=== PATIENT | female | born 1990 | race American Indian/Alaskan Native ===

== ENCOUNTER 2020-10-01 16:55 | Emergency (ER) | payer MEDICARE ==
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
[2020-10-01 18:56] LABS: Basophils # (Auto) 0.1 K/mm3 (0.0-0.1); Basophils % (Auto) 0.9 % (0.0-1.8); Eosinophils # (Auto) 0.4 K/mm3 (0.0-0.4); Eosinophils % (Auto) 3.3 % (0.0-4.3); Hematocrit 34.5 % (30.3-42.9); Lymphocytes # (Auto) 2.5 K/mm3 (1.2-5.4); Lymphocytes % (Auto) 22.8 % (13.4-35.0); Mean Corpuscular HGB Conc 32 % (30-34); Mean Corpuscular Volume 79 fl (79-97); Monocytes # (Auto) 0.7 K/mm3 (0.0-0.8); Platelet Count 354 K/mm3 (140-440); Red Blood Count 4.38 M/mm3 (3.65-5.03); Red Cell Distribution Width 18.9 % (13.2-15.2)
[2020-10-01 19:37] LABS: Bilirubin,Urine NEG (Negative); Blood,Urine LG (Negative); Color,Urine Yellow (Yellow); Mucus,Urine 1+ /HPF; Protein,Urine <15 mg/dL mg/dL (Negative)
[2020-10-01] MEDS ORDERED: FAMOTIDINE 20 MG TAB PO ONE (19:49)
[2020-10-01] MEDS ORDERED: ACETAMINOPHEN 500 MG TAB PO ONE (19:49)
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
[2020-10-01 20:52] LABS: Alanine Aminotransferase 10 units/L (7-56); Albumin 3.5 g/dL (3.9-5); Blood Urea Nitrogen 6 mg/dL (7-17); Hemolysis Index 3
[2020-10-01 20:54] LABS: BUN/Creatinine Ratio 12
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
[2020-10-01 23:31] VITALS: BP 164/99
== END 2020-10-01 23:32 | disposition home or self-care (01) ==
LOC: ED 16:55
DX: N94.6 Dysmenorrhea, unspecified (principal); R10.30 Lower abdominal pain, unspecified; R10.2 Pelvic and perineal pain; I10 Essential (primary) hypertension; F17.200 Nicotine dependence, unspecified, uncomplicated; Z98.890 Other specified postprocedural states; Z79.899 Other long term (current) drug therapy; Z88.8 Allergy status to other drugs, medicaments and biological substances; Z91.040 Latex allergy status; V49.49XA Driver injured in collision with other motor vehicles in traffic accident, initial encounter; Y93.89 Activity, other specified; Y92.410 Unspecified street and highway as the place of occurrence of the external cause; Y99.8 Other external cause status
CPT/HCPCS: 36415; 74177; 80053; 81001; 85025; 99284; Q9967

== ENCOUNTER 2021-04-26 09:24 | Emergency (ER) | payer MEDICAID, MEDICARE ==
[2021-04-26 09:51] LABS: Bilirubin,Urine NEG (Negative); Blood,Urine NEG (Negative); Color,Urine Straw (Yellow); Protein,Urine <15 mg/dL mg/dL (Negative); RBC,Urine < 1.0 /HPF (0.0-6.0); Urobilinogen,Urine < 2.0 mg/dL (<2.0)
--- NOTE | 2021-04-26 11:29 | Event Note ---
ED Screening Note Date of service: 04/26/21 Time: 11:26 ED Screening Note: 30-year-old female patient with history of kidney stones presents emergency department with complaints of suprapubic pain, nausea, and vomiting starting 5 days ago. Patient also began to notice vaginal discharge 3 days ago. She was evaluated at another local emergency department, where she was diagnosed with a urinary tract infection, but she refused IM antibiotics. She was reportedly not a candidate for PO antibiotics due to the "high level of infection." She was prescribed Zofran and Phenergan for nausea, which she states has been ineffective in relieving her symptoms. General: Awake, appropriately interactive, no acute distress. Neck: Supple. Full range of motion intact. Cardiovascular: Normal peripheral perfusion. Pulmonary: No respiratory distress. Patient is speaking normally without use of accessory muscles. Abdomen: Suprapubic tenderness. Back: Right CVA tenderness. Skin: No apparent rashes or lesions. Neurological: No facial asymmetry. Speech is clear. Follows commands. Patient is alert and oriented. Musculoskeletal: Moves all four extremities spontaneously with normal range of motion. Psych: Cooperative. Appropriate mood and affect. I have greeted and performed a focused rapid initial assessment of this patient. A comprehensive ED assessment and evaluation of the patient, analysis of all test results, and completion of the medical decision-making process will be conducted by additional ED providers. This initial assessment/diagnostic orders/clinical plan/treatment(s) is/are subject to change based on patients health status, clinical progression and re-assessment. Further treatment and workup at subsequent clinical provider's discretion. Patient/guardian urged not to elope from the ED as their condition may be serious if not clinically assessed and managed.
--- NOTE | 2021-04-26 12:37 | Emergency Department Report ---
ED Abdominal Pain HPI - General Chief Complaint: Abdominal Pain Stated Complaint: VOMITTING/LOW ABD PAIN/HEADACHE PUI?: No Time Seen by Provider: 04/26/21 11:56 Source: patient Mode of arrival: Ambulatory Limitations: No Limitations - History of Present Illness Initial Comments: Patient is a 30-year-old female that comes to the emergency room today complaining of lower abdominal pain and vomiting. She states that she went to [facility] couple weeks ago and they told her that she had a UTI but she refused treatment. She has not followed up with her primary care. Patient is ambulatory nontoxic initially in [facility] on exam. Patient denies taking any home medications. She has no CVA tenderness, no dysuria, no back pain, no constipation or diarrhea. She denies fevers or chills. She denies chest pain or shortness of breath. Last menstrual period 3 weeks ago. Severity scale (0 -10): 8 - Related Data Previous Rx's Medication Instructions Recorded Last Taken Type Cyanocobalamin (Vitamin B-12) 1,000 mcg PO DAILY #30 tablet 04/26/21 Unknown Rx [Vitamin B-12] Docusate Sodium [Colace] 100 mg PO BID #60 capsule 04/26/21 Unknown Rx Ferrous Sulfate [Ferrous Sulfate 324 mg PO DAILY #30 tablet. 04/26/21 Unknown Rx 324 MG] Thiamine [Vitamin B-1] 100 mg PO BID #60 tablet 04/26/21 Unknown Rx Allergies Allergy/AdvReac Type Severity Reaction Status Date / Time latex Allergy Rash Verified 10/01/20 17:07 lisinopril Allergy Swelling Verified 10/01/20 17:07 ED Review of Systems ROS: Stated complaint: VOMITTING/LOW ABD PAIN/HEADACHE Other details as noted in HPI Comment: All other systems reviewed and negative ED Past Medical Hx - Past Medical History Previous Medical History?: Yes Hx Hypertension: Yes Additional medical history: anemia , heavy menses - Surgical History Past Surgical History?: Yes Additional Surgical History: Gastric Sleeve, x 2 - Family History Family history: no significant - Social History Smoking Status: Current Every Day Smoker Substance Use Type: Alcohol, Prescribed - Medications Home Medications: Home Medications Medication Instructions Recorded Confirmed Last Taken Type Cyanocobalamin (Vitamin B-12) 1,000 mcg PO DAILY #30 tablet 04/26/21 Unknown Rx [Vitamin B-12] Docusate Sodium [Colace] 100 mg PO BID #60 capsule 04/26/21 Unknown Rx Ferrous Sulfate [Ferrous Sulfate 324 mg PO DAILY #30 tablet. 04/26/21 Unknown Rx 324 MG] Thiamine [Vitamin B-1] 100 mg PO BID #60 tablet 04/26/21 Unknown Rx ED Physical Exam - General Limitations: No Limitations General appearance: alert, in no apparent distress - Head Head exam: Present: atraumatic, normocephalic - Eye Eye exam: Present: normal appearance - ENT ENT exam: Present: mucous membranes moist - Neck Neck exam: Present: normal inspection - Respiratory Respiratory exam: Present: normal lung sounds bilaterally. Absent: respiratory distress - Cardiovascular Cardiovascular Exam: Present: regular rate, normal rhythm. Absent: systolic murmur, diastolic murmur, rubs, gallop - GI/Abdominal GI/Abdominal exam: Present: soft, tenderness (llq and suprapubic), normal bowel sounds - Extremities Exam Extremities exam: Present: normal inspection - Back Exam Back exam: Present: normal inspection - Neurological Exam Neurological exam: Present: alert, oriented X3 - Psychiatric Psychiatric exam: Present: normal affect, normal mood - Skin Skin exam: Present: warm, dry, intact, normal color. Absent: rash ED Course Vital Signs 04/26/21 04/26/21 09:31 14:46 Temperature 99.0 F Pulse Rate 84 76 Respiratory 20 16 Rate Blood Pressure 168/94 133/55 [Right] O2 Sat by Pulse 99 100 Oximetry - Reevaluation(s) Reevaluation #1: 04/26/21 patient not taking NSAIDs given her anemia ED Medical Decision Making - Lab Data Result diagrams: 04/26/21 12:30 04/26/21 12:16 - Radiology Data Radiology results: report reviewed, image reviewed see report - Medical Decision Making Labs 04/26/21 04/26/21 04/26/21 12:16 12:16 12:30 WBC 5.9 RBC 3.61 L Hgb 7.3 L Hct 22.9 L MCV 63 L MCH 20 L MCHC 32 RDW 18.0 H Plt Count 283 Lymph % (Auto) 24.4 [place] % (Auto) 6.6 Eos % (Auto) 3.0 Baso % (Auto) 0.9 Lymph # (Auto) 1.4 [place] # (Auto) 0.4 Eos # (Auto) 0.2 Baso # (Auto) 0.1 Seg Neutrophils % 65.1 Seg Neutrophils # 3.8 Sodium 140 Potassium 3.8 Chloride 107.1 H Carbon Dioxide 23 Anion Gap 14 BUN 8 Creatinine 0.5 L Estimated GFR > 60 BUN/Creatinine Ratio 16 Glucose 95 Calcium 8.3 L Magnesium 2.00 Total Bilirubin 0.20 AST 16 ALT 15 Alkaline Phosphatase 51 Total Protein 6.3 Albumin 3.4 L Albumin/Globulin Ratio 1.2 Lipase 75 H HCG, Qual Negative Urine Color Urine Turbidity Urine pH Ur Specific [place] Urine Protein Urine Glucose (UA) Urine Ketones Urine Blood Urine Nitrite Urine Bilirubin Urine Urobilinogen Ur Leukocyte Esterase Urine WBC (Auto) Urine RBC (Auto) U Epithel Cells (Auto) 04/26/21 Unknown WBC RBC Hgb Hct MCV MCH MCHC RDW Plt Count Lymph % (Auto) [place] % (Auto) Eos % (Auto) Baso % (Auto) Lymph # (Auto) [place] # (Auto) Eos # (Auto) Baso # (Auto) Seg Neutrophils % Seg Neutrophils # Sodium Potassium Chloride Carbon Dioxide Anion Gap BUN Creatinine Estimated GFR BUN/Creatinine Ratio Glucose Calcium Magnesium Total Bilirubin AST ALT Alkaline Phosphatase Total Protein Albumin Albumin/Globulin Ratio Lipase HCG, Qual Urine Color Straw Urine Turbidity Clear Urine pH 7.0 Ur Specific [place] 1.011 Urine Protein <15 mg/dl Urine Glucose (UA) Neg Urine Ketones Neg Urine Blood Neg Urine Nitrite Neg Urine Bilirubin Neg Urine Urobilinogen < 2.0 Ur Leukocyte Esterase Tr Urine WBC (Auto) 2.0 Urine RBC (Auto) < 1.0 U Epithel Cells (Auto) 2.0 Vital Signs (72 hours) 04/26/21 04/26/21 09:31 14:46 Temperature 99.0 F Pulse Rate 84 76 Respiratory 20 16 Rate Blood Pressure 168/94 133/55 [Right] O2 Sat by Pulse 99 100 Oximetry UA noted. No evidence of UTI. Labs noted. Hemoglobin of 7 when compared to last visit it was 11. I reexplored menses with patient and she states that she does have heavy periods she denies any vomiting blood or bloody or dark stools. Patient states she has been told she has had anemia before. Patient is new to the area and has not had medical care in some time. Despite her anemia patient has no chest pain or shortness of breath. She has no tachycardia or hypotension. Given that the UA was negative. An ultrasound was ordered. The patient is tender over her suprapubic and just to the left of her suprapubic area. Ultraso und noted negative for fibroids or ovarian cyst. Patient does have a history of a gastric sleeve and she states that she is taking no medications on a routine basis. When I asked about vitamins she says that she has them but she does not routinely take them. Have educated the patient about the signs and symptoms of vitamin deficiency post gastric bypass/sleeve surgeries and the spectrum of symptomology that they can cause. It seems that the patient was not aware of this. I think this is probably a confounding factor in her acute on chronic anemia. Staffed with Dr. Avitia Patient being discharged home with discharge plan of care including iron, Colace and multivitamins. She has been instructed on her thiamine and B12. I have given her referral to primary care and [facility] for follow-up. Patient verbalizes an understanding of her discharge plan of care. - Differential Diagnosis ro uti/preg/fibroid Critical care attestation.: If time is entered above; I have spent that time in minutes in the direct care of this critically ill patient, excluding procedure time. ED Disposition Clinical Impression: Abdominal pain, Gastric bypass status for obesity, Acute on chronic anemia Disposition: DC-01 TO HOME OR SELFCARE Is pt being admited?: No Does the pt Need Aspirin: No Condition: Stable Instructions: Abdominal Pain (ED), Abdominal Pain, Adult Additional Instructions: advance diet as tolerated follow up with pcp, GI and OB referrals below activity as tolerated over the counter pain meds for pain control stay well hydrated with water Prescriptions: Docusate Sodium [Colace] 100 mg PO BID #60 capsule Ferrous Sulfate [Ferrous Sulfate 324 MG] 324 mg PO DAILY #30 tablet. Thiamine [Vitamin B-1] 100 mg PO BID #60 tablet Cyanocobalamin (Vitamin B-12) [Vitamin B-12] 1,000 mcg PO DAILY #30 tablet Referrals: LING BUCKNER MD [Staff Physician] - 3-5 Days GUS BYRNE MD [Staff Physician] - 3-5 Days Forms: Work/School Release Form(ED) Time of Disposition: 14:20
[2021-04-26 12:57] LABS: Basophils # (Auto) 0.1 K/mm3 (0.0-0.1); Basophils % (Auto) 0.9 % (0.0-1.8); Eosinophils # (Auto) 0.2 K/mm3 (0.0-0.4); Hematocrit 22.9 % (30.3-42.9); Hemoglobin 7.3 gm/dl (10.1-14.3); Lymphocytes # (Auto) 1.4 K/mm3 (1.2-5.4); Lymphocytes % (Auto) 24.4 % (13.4-35.0); Mean Corpuscular HGB Conc 32 % (30-34); Monocytes # (Auto) 0.4 K/mm3 (0.0-0.8); Monocytes % (Auto) 6.6 % (0.0-7.3); Platelet Count 283 K/mm3 (140-440); Red Blood Count 3.61 M/mm3 (3.65-5.03)
[2021-04-26 13:09] LABS: Mean Corpuscular Volume 63 fl (79-97)
[2021-04-26 13:16] LABS: Alanine Aminotransferase 15 units/L (7-56); Albumin 3.4 g/dL (3.9-5); Blood Urea Nitrogen 8 mg/dL (7-17); Calcium 8.3 mg/dL (8.4-10.2); Hemolysis Index 7
[2021-04-26 13:19] LABS: BUN/Creatinine Ratio 16
[2021-04-26] MEDS ORDERED: IBUPROFEN 800 MG TAB PO ONE (14:45)
[2021-04-26 14:46] VITALS: BP 133/55
--- NOTE | 2021-04-26 14:48 | Ultrasound Report ---
US transvaginal, US pelvic complete INDICATION / CLINICAL INFORMATION: ABD PAIN. TECHNIQUE: Transabdominal and Transvaginal. Duplex Color Doppler used: Yes. COMPARISON: None available FINDINGS: UTERUS: Measures 11.3 x 5.8 x 6.1 cm. -Endometrial stripe measures 1.3 cm. - Mass lesions: None. RIGHT ADNEXA: No significant ovarian cyst or mass. Normal color Doppler blood flow. LEFT ADNEXA: No significant ovarian cyst or mass. Normal color Doppler blood flow. URINARY BLADDER: No significant abnormality. FREE FLUID: Small quantity of fluid in the pelvis is likely physiologic in a young female ADDITIONAL FINDINGS: None. IMPRESSION: 1. No significant sonographic abnormality. Signer Name: Efraín Stevens MD Signed: 04/26/2021 2:44 PM Workstation Name: [id number]
== END 2021-04-26 15:00 | disposition home or self-care (01) ==
LOC: ED 09:24
DX: D64.9 Anemia, unspecified (principal); R10.30 Lower abdominal pain, unspecified; I10 Essential (primary) hypertension; F17.200 Nicotine dependence, unspecified, uncomplicated; Z98.84 Bariatric surgery status; Z98.890 Other specified postprocedural states; Z79.899 Other long term (current) drug therapy; Z88.8 Allergy status to other drugs, medicaments and biological substances
CPT/HCPCS: 36415; 76830; 76856; 80053; 81001; 83690; 83735; 84703; 85025

== ENCOUNTER 2021-05-04 10:36 | Emergency (ER) | payer MEDICAID ==
[2021-05-04 10:56] VITALS: BP 156/95
[2021-05-04] MEDS ORDERED: ACETAMINOPHEN 500 MG TAB PO ONE (11:17)
[2021-05-04] MEDS ORDERED: METOCLOPRAMIDE 10 MG TAB PO ONE (11:17)
--- NOTE | 2021-05-04 11:23 | Event Note ---
ED Screening Note Date of service: 05/04/21 Time: 11:18 ED Screening Note: Patient is a A2 30 yo AA female with a h/o obesity, HTN and s/p gastric sleeve surgery 12 months ago presents to the ED with c/o acute onset persistent severe lower abdominal pain with intermittent nausea and vomiting for the last 2 weeks, worse in the last 2 days. Patient states that she had a positive test at home 24 hours ago. Patient also c/o severe left knee pain for the last 3 weeks after she she accidentally bumped her left knee on a truck at work. Patient states that she has been evaluated by her Workman's Comp Provider but her pain has worsened despite being treated for pain. Patient states that she was advised to come to the ED for evaluation of her left knee pain. Patient denies dizziness, fever, chills, diarrhea, vaginal bleeding, dysuria, urinary urgency and frequency. This initial assessment/diagnostic orders/clinical plan/treatment(s) is/are subject to change based on patients health status, clinical progression and re- assessment by fellow clinical providers in the ED. Further treatment and workup at subsequent clinical providers discretion. Patient/guardian urged not to elope from the ED as their condition may be serious if not clinically assessed and managed. Initial orders include: CMP, CBC, Hcg Quant, UA,
[2021-05-04 11:56] LABS: Bilirubin,Urine NEG (Negative); Blood,Urine NEG (Negative); Color,Urine Yellow (Yellow); Mucus,Urine FEW /HPF; Protein,Urine <15 mg/dL mg/dL (Negative); Urobilinogen,Urine < 2.0 mg/dL (<2.0)
[2021-05-04 12:04] LABS: Basophils # (Auto) 0.1 K/mm3 (0.0-0.1); Basophils % (Auto) 1.5 % (0.0-1.8); Eosinophils # (Auto) 0.1 K/mm3 (0.0-0.4); Eosinophils % (Auto) 2.7 % (0.0-4.3); Hematocrit 23.5 % (30.3-42.9); Hemoglobin 7.4 gm/dl (10.1-14.3); Lymphocytes # (Auto) 1.3 K/mm3 (1.2-5.4); Lymphocytes % (Auto) 27.1 % (13.4-35.0); Mean Corpuscular HGB Conc 31 % (30-34); Mean Corpuscular Volume 63 fl (79-97); Monocytes # (Auto) 0.3 K/mm3 (0.0-0.8); Monocytes % (Auto) 5.8 % (0.0-7.3); Platelet Count 330 K/mm3 (140-440); Red Blood Count 3.74 M/mm3 (3.65-5.03); Red Cell Distribution Width 18.2 % (13.2-15.2)
[2021-05-04 12:23] LABS: Alanine Aminotransferase 6 units/L (7-56); Albumin 3.6 g/dL (3.9-5); BUN/Creatinine Ratio 23; Blood Urea Nitrogen 9 mg/dL (7-17); Hemolysis Index 0
--- NOTE | 2021-05-04 12:41 | Emergency Department Report ---
ED General Adult HPI - General Chief complaint: Abdominal Pain Stated complaint: / LT KNEE PAIN WORK RELATED INJURY PUI?: No Time Seen by Provider: 05/04/21 12:34 Source: patient, RN notes reviewed, old records reviewed Mode of arrival: Ambulatory Limitations: No Limitations - History of Present Illness Initial comments: The patient was evaluated in the emergency department for symptoms described in the history of present illness. He/she was evaluated in the context of the global COVID-19 pandemic, which necessitated consideration that the patient might be at risk for infection with the virus that causes COVID-19. Institutional protocols and algorithms that pertain to the evaluation of patients at risk for COVID-19 are in a state of rapid change based on information released by regulatory bodies including the CDC and federal and state organizations. These policies and algorithms were followed during the ravinder janet's care in the emergency department. Please note that these policies, procedures and recommendations changed on a rapid basis. During the history and physical examination, I am chaperoned by nurse KULDEEP GILL The patient is a 30-year-old female. She reports that she is 5, para 2, status post 2 miscarriages. She also has a history of bariatric surgery, performed in [place] last year, and also reports a history of anemia, noncompliance of bariatric medication supplementations. The patient presents to the ER today with a primary complaint of left-sided knee pain. Patient was involved in a fall at work a few weeks ago, and had outpati ent x-rays done, which she believes showed no fracture or dislocation. She has been having persistent pain in her left knee, has not really taken anything [id number] for it, and reports that her Worker's Compensation referred her to the emergency room. She also reports that outpatient physical therapy was recommended. She presents with a secondary complaint of lower abdominal cramping without dysuria, no nausea, vomiting or diarrhea or vaginal bleeding. She recently had a pelvic ultrasound which was fairly unremarkable, and a negative test. She denies urinary symptoms today, but reports that she might be today. She does not have a private WIRELESS MANAGER locally, nor does she follow-up with a local bariatric surgeon locally. She denies headache, neck pain, chest pain, vomiting, loss of taste and smell, hematemesis and bright red blood per rectum. Left-sided knee pain has been present for 3 to 4 weeks, is aching and throbbing, increases with palpation and range of motion, and it decreases with rest. Lower abdominal cramping is suprapubic and left lower quadrant, throbbing and aching, does not radiate anywhere, increases with palpation and decreases with rest. -: Gradual, days(s), week(s) Location: abdomen, left, lower extremity Radiation: non-radiation Severity scale (0 -10): 8 Quality: aching Consistency: intermittent Improves with: rest Worsens with: movement - Related Data Previous Rx's Medication Instructions Recorded Last Taken Type Cyanocobalamin (Vitamin B-12) 1,000 mcg PO DAILY #30 tablet 04/26/21 Unknown Rx [Vitamin B-12] Docusate Sodium [Colace] 100 mg PO BID #60 capsule 04/26/21 Unknown Rx Ferrous Sulfate [Ferrous Sulfate 324 mg PO DAILY #30 tablet. 04/26/21 Unknown Rx 324 MG] Thiamine [Vitamin B-1] 100 mg PO BID #60 tablet 04/26/21 Unknown Rx Doxylamine Succinate/Vit B6 1 each PO QHS PRN #30 tablet. 05/04/21 Unknown Rx [Heavenly Quezada 10-10 mg Tablet] Pam Root [Pam] 250 mg PO QID PRN #30 capsule 05/04/21 Unknown Rx Vit-Fe Fumar-FA [ 1 tab PO QDAY #30 tablet 05/04/21 Unknown Rx Vitamin] Allergies Allergy/AdvReac Type Severity Reaction Status Date / Time latex Allergy Rash Verified 05/04/21 14:30 lisinopril Allergy Swelling Verified 05/04/21 14:30 ED Review of Systems ROS: Stated complaint: / LT KNEE PAIN WORK RELATED INJURY Other details as noted in HPI Constitutional: other (Denies loss of taste and smell). denies: fever, weakness Eyes: denies: eye discharge ENT: denies: epistaxis Respiratory: denies: cough Cardiovascular: denies: chest pain Gastrointestinal: abdominal pain. denies: nausea, vomiting, diarrhea Genitourinary: denies: dysuria Musculoskeletal: arthralgia, myalgia Skin: denies: lesions Neurological: denies: weakness Hematological/Lymphatic: denies: easy bleeding ED Past Medical Hx - Past Medical History Hx Hypertension: Yes Additional medical history: anemia , heavy menses - Surgical History Additional Surgical History: Gastric Sleeve, x 2 - Social History Smoking Status: Current Every Day Smoker Substance Use Type: Alcohol - Medications Home Medications: Home Medications Medication Instructions Recorded Confirmed Last Taken Type Cyanocobalamin (Vitamin B-12) 1,000 mcg PO DAILY #30 tablet 04/26/21 Unknown Rx [Vitamin B-12] Docusate Sodium [Colace] 100 mg PO BID #60 capsule 04/26/21 Unknown Rx Ferrous Sulfate [Ferrous Sulfate 324 mg PO DAILY #30 tablet. 04/26/21 Unknown Rx 324 MG] Thiamine [Vitamin B-1] 100 mg PO BID #60 tablet 04/26/21 Unknown Rx Doxylamine Succinate/Vit B6 1 each PO QHS PRN #30 tablet. 05/04/21 Unknown Rx [Dicjohngis Dr 10-10 mg Tablet] Pam Root [Pam] 250 mg PO QID PRN #30 capsule 05/04/21 Unknown Rx Vit-Fe Fumar-FA [ 1 tab PO QDAY #30 tablet 05/04/21 Unknown Rx Vitamin] ED Physical Exam - General Limitations: No Limitations General appearance: alert, in no apparent distress, obese - Head Head exam: Present: atraumatic, normocephalic - Eye Eye exam: Present: normal appearance, EOMI. Absent: nystagmus - ENT ENT exam: Present: normal exam, normal orophraynx, mucous membranes moist, normal external ear exam - Neck Neck exam: Present: normal inspection, full ROM. Absent: tenderness, meningismus - Respiratory Respiratory exam: Present: normal lung sounds bilaterally. Absent: respiratory distress, wheezes, rales, rhonchi, stridor - Cardiovascular Cardiovascular Exam: Present: regular rate, normal rhythm, normal heart sounds. Absent: bradycardia, tachycardia, irregular rhythm, systolic murmur, diastolic murmur, rubs, gallop - GI/Abdominal GI/Abdominal exam: Present: soft, tenderness (Minimal left lower quadrant tender. No rebound, guarding or peritoneal sign), normal bowel sounds. Absent: distended, guarding, rebound, rigid, pulsatile mass - Extremities Exam Extremities exam: Present: normal inspection (There is no redness, pus, streaking over the bilateral lower extremity), full ROM, other (2+ pulses noted in the bilateral upper and lower extremities. There is no palpable cord. negative Homans sign. Muscular compartments are soft. The pelvis is stable.). Absent: tenderness (There is no significant bony tenderness on the lower or upp er extremities), calf tenderness - Back Exam Back exam: Present: normal inspection, full ROM. Absent: tenderness, CVA tenderness (R), CVA tenderness (L), paraspinal tenderness, vertebral tenderness - Neurological Exam Neurological exam: Present: alert, oriented X3, normal gait, other (No facial droop. Tongue midline. Extraocular movements intact bilaterally. Facial sensation intact to light touch in V1, V2, V3 distribution bilaterally. 5 and a 5 strength in 4 extremities. Sensation intact to light touch in 4 ex tremities.). Absent: motor sensory deficit - Psychiatric Psychiatric exam: Present: normal affect, normal mood - Skin Skin exam: Present: warm, dry, intact, normal color. Absent: rash ED Course Vital Signs 05/04/21 10:51 Temperature 99.8 F H Pulse Rate 90 Respiratory 18 Rate Blood Pressure 156/95 O2 Sat by Pulse 100 Oximetry - Reevaluation(s) Reevaluation #1: 05/04/21 13:42 Differential diagnosis, including but not limited to: Sprain, strain, natural history of musculoskeletal injury, , ectopic , ovarian cyst Assessment and plan: 30-year-old female with 2 complaints. Complaint #1, left-sided knee pain from work-related injury, present for approximately 1 month, being managed by outpatient Worker's Compensation. There is no redness, pus, streaking or tenderness, and she has full active and passive range of motion in her bilateral upper and lower extremities. Offered patient repeat x-ray, but that I do not think that it is medically necessary at this time. She walks with a steady gait. The patient declines an x-ray. Have counseled her on the natural history of blunt trauma, including need to perform rest, ice, compression, elevation, as well as outpatient physical therapy. She reports that her outpatient Worker's Compensation physician has already advised physical therapy. Not a candidate for NSAIDs given , microcytic anemia, and presence of bariatric surgery. Do not see indication for narcotic therapy at this time. Microcytic anemia is subacute. Elevated blood pressure is chronic. Outpatient follow-up with primary care and/or OB for microcytic anemia, elevated blood pressure. Patient reports that she does not need a refill on her bariatric maintenance medications. Acetaminophen for pain. Complaints #2, left lower quadrant abdominal pain. She is found to be today. Urinalysis nonactionable. Ultrasound from April 26 reviewed and zac reciated. Repeat ultrasound ordered. Results pending at this time. Counseled patient that she would likely need to follow-up with outpatient OB. Currently awaiting ultrasound interpretation. 05/04/21 13:42 05/04/21 14:41 Patient in no acute distress. Ultrasound wet read from radiologist Dr. Ramirez indicates no acute findings. Specifically, no evidence of intrauterine or extrauterine . Belly soft on repeat examination. Have discussed need to closely follow-up with outpatient OB, return in 48 hours for repeat quant hCG, CBC and ultrasound. Patient has endorsed understanding. Outpatient follow-up for left knee pain. ED Medical Decision Making - Lab Data Result diagrams: 05/04/21 11:41 05/04/21 11:41 Vital Signs 05/04/21 10:51 Temperature 99.8 F H Pulse Rate 90 Respiratory 18 Rate Blood Pressure 156/95 O2 Sat by Pulse 100 Oximetry Lab Results 05/04/21 05/04/21 05/04/21 Range/Units 11:41 11:41 Unknown WBC 4.9 (4.5-11.0) K/mm3 RBC 3.74 (3.65-5.03) M/mm3 Hgb 7.4 L (10.1-14.3) gm/dl Hct 23.5 L (30.3-42.9) % MCV 63 L (79-97) fl MCH 20 L (28-32) pg MCHC 31 (30-34) % RDW 18.2 H (13.2-15.2) % Plt Count 330 (140-440) K/mm3 Lymph % (Auto) 27.1 (13.4-35.0) % [place] % (Auto) 5.8 (0.0-7.3) % Eos % (Auto) 2.7 (0.0-4.3) % Baso % (Auto) 1.5 (0.0-1.8) % Lymph # (Auto) 1.3 (1.2-5.4) K/mm3 [place] # (Auto) 0.3 (0.0-0.8) K/mm3 Eos # (Auto) 0.1 (0.0-0.4) K/mm3 Baso # (Auto) 0.1 (0.0-0.1) K/mm3 Seg Neutrophils % 62.9 (40.0-70.0) % Seg Neutrophils # 3.1 (1.8-7.7) K/mm3 Sodium 136 L (137-145) mmol/L Potassium 3.9 (3.6-5.0) mmol/L Chloride 104.1 (98-107) mmol/L Carbon Dioxide 22 (22-30) mmol/L Anion Gap 14 mmol/L BUN 9 (7-17) mg/dL Creatinine 0.4 L (0.6-1.2) mg/dL Estimated GFR > 60 ml/min BUN/Creatinine Ratio 23 % Glucose 81 (65-100) mg/dL Calcium 9.0 (8.4-10.2) mg/dL Total Bilirubin 0.40 (0.1-1.2) mg/dL AST 13 (5-40) units/L ALT 6 L (7-56) units/L Alkaline Phosphatase 49 (35-129) units/L Total Protein 6.8 (6.3-8.2) g/dL Albumin 3.6 L (3.9-5) g/dL Albumin/Globulin Ratio 1.1 % HCG, Quant (0-4) mIU/mL Urine Color Yellow (Yellow) Urine Turbidity Clear (Clear) Urine pH 8.0 H (5.0-7.0) Ur Specific [place] 1.015 (1.003-1.030) Urine Protein <15 mg/dl (Negative) mg/dL Urine Glucose (UA) Neg (Negative) mg/dL Urine Ketones Neg (Negative) mg/dL Urine Blood Neg (Negative) Urine Nitrite Neg (Negative) Urine Bilirubin Neg (Negative) Urine Urobilinogen < 2.0 (<2.0) mg/dL Ur Leukocyte Esterase Neg (Negative) Urine WBC (Auto) 2.0 (0.0-6.0) /HPF Urine RBC (Auto) 2.0 (0.0-6.0) /HPF U Epithel Cells (Auto) 8.0 (0-13.0) /HPF Urine Mucus Few /HPF 05/04/21 Range/Units Unknown WBC (4.5-11.0) K/mm3 RBC (3.65-5.03) M/mm3 Hgb (10.1-14.3) gm/dl Hct (30.3-42.9) % MCV (79-97) fl MCH (28-32) pg MCHC (30-34) % RDW (13.2-15.2) % Plt Count (140-440) K/mm3 Lymph % (Auto) (13.4-35.0) % [place] % (Auto) (0.0-7.3) % Eos % (Auto) (0.0-4.3) % Baso % (Auto) (0.0-1.8) % Lymph # (Auto) (1.2-5.4) K/mm3 [place] # (Auto) (0.0-0.8) K/mm3 Eos # (Auto) (0.0-0.4) K/mm3 Baso # (Auto) (0.0-0.1) K/mm3 Seg Neutrophils % (40.0-70.0) % Seg Neutrophils # (1.8-7.7) K/mm3 Sodium (137-145) mmol/L Potassium (3.6-5.0) mmol/L Chloride (98-107) mmol/L Carbon Dioxide (22-30) mmol/L Anion Gap mmol/L BUN (7-17) mg/dL Creatinine (0.6-1.2) mg/dL Estimated GFR ml/min BUN/Creatinine Ratio % Glucose (65-100) mg/dL Calcium (8.4-10.2) mg/dL Total Bilirubin (0.1-1.2) mg/dL AST (5-40) units/L ALT (7-56) units/L Alkaline Phosphatase (35-129) units/L Total Protein (6.3-8.2) g/dL Albumin (3.9-5) g/dL Albumin/Globulin Ratio % HCG, Quant 553.0 H (0-4) mIU/mL Urine Color (Yellow) Urine Turbidity (Clear) Urine pH (5.0-7.0) Ur Specific [place] (1.003-1.030) Urine Protein (Negative) mg/dL Urine Glucose (UA) (Negative) mg/dL Urine Ketones (Negative) mg/dL Urine Blood (Negative) Urine Nitrite (Negative) Urine Bilirubin (Negative) Urine Urobilinogen (<2.0) mg/dL Ur Leukocyte Esterase (Negative) Urine WBC (Auto) (0.0-6.0) /HPF Urine RBC (Auto) (0.0-6.0) /HPF U Epithel Cells (Auto) (0-13.0) /HPF Urine Mucus /HPF - Radiology Data Radiology results: report reviewed, image reviewed [facility] [address] [place] [address] Ultrasound Report Signed Patient: LEO AGEE MR#: [id number] : 1990 Acct:[id number] Age/Sex: 30 / F ADM Date: 04/26/21 Loc: ED Attending Dr: Ordering Physician: CAROLINE LUGO Date of Service: 04/26/21 Procedure(s): US transvaginal Accession Number(s): [id number] cc: CAROLINE LUGO US transvaginal, US pelvic complete INDICATION / CLINICAL INFORMATION: ABD PAIN. TECHNIQUE: Transabdominal and Transvaginal. Duplex Color Doppler used: Yes. COMPARISON: None available FINDINGS: UTERUS: Measures 11.3 x 5.8 x 6.1 cm. -Endometrial stripe measures 1.3 cm. - Mass lesions: None. RIGHT ADNEXA: No significant ovarian cyst or mass. Normal color Doppler blood flow. LEFT ADNEXA: No significant ovarian cyst or mass. Normal color Doppler blood rene w. URINARY BLADDER: No significant abnormality. FREE FLUID: Small quantity of fluid in the pelvis is likely physiologic in a young female ADDITIONAL FINDINGS: None. IMPRESSION: 1. No significant sonographic abnormality. Signer Name: Efraín Stevens MD Signed: 04/26/2021 2:44 PM Workstation Name: [id number] Transcribed By: CS Dictated By: Efraín Stevens MD Electronically Authenticated By: Efraín Stveens MD Signed Date/Time: 04/26/21 144 DD/ 144 Critical care attestation.: If time is entered above; I have spent that time in minutes in the direct care of this critically ill patient, excluding procedure time. ED Disposition Clinical Impression: Left knee pain, Lower abdominal pain, Positive test Disposition: DC-01 TO HOME OR SELFCARE Is pt being admited?: No Does the pt Need Aspirin: No Condition: Good Instructions: Abdominal Pain (ED), Joint Pain, [id number], Acute Knee Pain, Adult, [id number], Abdominal Pain, Adult Additional Instructions: Rest, avoid heavy lifting, and strenuous physical activities. Follow-up in 2 days / 48 hours for repeat CBC, quantitative hCG, and ultrasound. Patient's initial ultrasound today as a wet read from the radiologist indicated no acute findings. Formal interpretation should be rendered within the next 24 hours, please have your primary care doctor or WIRELESS MANAGER doctor contact medical records department to obtain copies of laboratory studies and radiology studies. Rest, avoid heavy lifting, and sexual activity. Please return to the emergency room right away with new pain, worsened pain, migration of pain, projectile vomiting, change in mental status, confusion, inability to tolerate liquid feeds, loss of consciousness, or any new, worsened or different symptoms not present on the initial emergency room evaluation. Patient most likely experiencing natural expected history from work-related left knee injury. Please follow-up with your outpatient primary care doctor or orthopedic physi annmarie or workers compensation physician for chronic left knee pain. Patient may benefit from rest, ice, compression, elevation therapy, ice packs and heat packs as noted, and/or outpatient physical therapy. Patient may take [id number] acetaminophen, 650 mg by mouth, every 4-6 hours, maximum daily dose to not exceed 3 g per 24 hours. Patient should also continue the outpatient multivitamins and supplements that were prescribed of about a week ago for her chronic anemia. Patient should also follow-up with a primary medical doctor within the next 3 to 4 weeks for elevated blood pressure, and anemia. For the patient's convenience, a number of local primary care doctors and WIRELESS MANAGER doctors have been listed that she may follow-up with. Referrals: [facility] [Provider Group] - 3-5 Days [facility] [Provider Group] - 3-5 Days [facility] [Provider Group] - 3-5 Days [facility] [Provider Group] - 3-5 Days
--- NOTE | 2021-05-04 16:37 | Ultrasound Report ---
ULTRASOUND OBSTETRIC INDICATION: Lower abdominal and pelvic pain. Estimate clinical age of 4 weeks. TECHNIQUE: Transabdominal. COMPARISON: Pelvic ultrasound from 04/26/2021. FINDINGS: GESTATIONAL SAC: None seen. YOLK SAC: None seen. EMBRYO/FETUS: None seen. ADNEXA: No significant abnormality. FREE FLUID: None. ADDITIONAL FINDINGS: None. IMPRESSION: No intrauterine or ectopic or other acute abnormality of the pelvis is identified. Signer Name: Ash Ramirez MD Signed: 05/04/2021 4:33 PM Workstation Name: [id number]
== END 2021-05-04 15:20 | disposition home or self-care (01) ==
LOC: ED 10:36
DX: O26.891 Other specified pregnancy related conditions, first trimester (principal); O99.331 Smoking (tobacco) complicating pregnancy, first trimester; O16.1 Unspecified maternal hypertension, first trimester; R10.30 Lower abdominal pain, unspecified; M25.562 Pain in left knee; Z3A.01 Less than 8 weeks gestation of pregnancy; Z88.8 Allergy status to other drugs, medicaments and biological substances; Z79.899 Other long term (current) drug therapy; Z98.890 Other specified postprocedural states; Z91.040 Latex allergy status
CPT/HCPCS: 36415; 76801; 80053; 81001; 84702; 85025

== ENCOUNTER 2021-05-11 12:22 | Emergency (ER) | payer MEDICAID ==
[2021-05-11 13:52] VITALS: BP 151/76
--- NOTE | 2021-05-11 13:52 | Emergency Department Report ---
<AMAN PEACOCK - Last Filed: 05/11/21 18:05> ED General Adult HPI - General Chief complaint: Abdominal Pain Stated complaint: FOLLOWUP/ULTRASOUND/YEAST INFECTION Time Seen by Provider: 05/11/21 13:40 Source: patient Mode of arrival: Ambulatory Limitations: No Limitations - History of Present Illness Initial comments: 30-year-old -[place] female patient presents with complaints of lower abdominal pain ongoing for 2 weeks. Patient was seen here 05/04/2021 for the same and found to be . She was informed to return to the ED in 2 days for repeat CBC, beta-hCG, and OB ultrasound. Patient states she continues to have lower abdominal cramping pain that is intermittent. She admits to some vaginal discharge that is nonodorous and denies any dysuria/hematuria, urinary frequency, nausea/vomiting/diarrhea, constipation, or fever/chills/sweats. Patient states she has not followed up with an CONTROL CENTER OPERATOR yet. History of bariatric surgery per patient. Patient is G5, ; she also denies any dyspareunia or vaginal bleeding. - Related Data Previous Rx's Medication Instructions Recorded Last Taken Type Cyanocobalamin (Vitamin B-12) 1,000 mcg PO DAILY #30 tablet 04/26/21 Unknown Rx [Vitamin B-12] Docusate Sodium [Colace] 100 mg PO BID #60 capsule 04/26/21 Unknown Rx Ferrous Sulfate [Ferrous Sulfate 324 mg PO DAILY #30 tablet. 04/26/21 Unknown Rx 324 MG] Thiamine [Vitamin B-1] 100 mg PO BID #60 tablet 04/26/21 Unknown Rx Doxylamine Succinate/Vit B6 1 each PO QHS PRN #30 tablet. 05/04/21 Unknown Rx [Heavenly [place] 10-10 mg Tablet] Pam Root [Pam] 250 mg PO QID PRN #30 capsule 05/04/21 Unknown Rx Vit-Fe Fumar-FA [ 1 tab PO QDAY #30 tablet 05/04/21 Unknown Rx Vitamin] Allergies Allergy/AdvReac Type Severity Reaction Status Date / Time latex Allergy Rash Verified 05/04/21 14:30 lisinopril Allergy Swelling Verified 05/04/21 14:30 ED Review of Systems Constitutional: denies: chills, fever Gastrointestinal: abdominal pain. denies: nausea, vomiting, diarrhea, constipation, hematemesis Genitourinary: discharge. denies: urgency, dysuria, frequency, hematuria, abnormal menses Musculoskeletal: denies: back pain Skin: denies: rash, lesions, change in color Hematological/Lymphatic: denies: swollen glands ED Past Medical Hx - Past Medical History Previous Medical History?: Yes Hx Hypertension: Yes Additional medical history: anemia , heavy menses - Surgical History Past Surgical History?: Yes Additional Surgical History: Gastric Sleeve, x 2 - Social History Smoking Status: Former Smoker Substance Use Type: None - Medications Home Medications: Home Medications Medication Instructions Recorded Confirmed Last Taken Type Cyanocobalamin (Vitamin B-12) 1,000 mcg PO DAILY #30 tablet 04/26/21 Unknown Rx [Vitamin B-12] Docusate Sodium [Colace] 100 mg PO BID #60 capsule 04/26/21 Unknown Rx Ferrous Sulfate [Ferrous Sulfate 324 mg PO DAILY #30 tablet. 04/26/21 Unknown Rx 324 MG] Thiamine [Vitamin B-1] 100 mg PO BID #60 tablet 04/26/21 Unknown Rx Doxylamine Succinate/Vit B6 1 each PO QHS PRN #30 tablet. 05/04/21 Unknown Rx [Diclegis Dr 10-10 mg Tablet] Pam Root [Pam] 250 mg PO QID PRN #30 capsule 05/04/21 Unknown Rx Vit-Fe Fumar-FA [ 1 tab PO QDAY #30 tablet 05/04/21 Unknown Rx Vitamin] ED Physical Exam - General Limitations: No Limitations General appearance: alert, in no apparent distress, obese - Head Head exam: Present: atraumatic, normocephalic - Eye Eye exam: Present: normal appearance - Respiratory Respiratory exam: Present: normal lung sounds bilaterally. Absent: respiratory distress - Cardiovascular Cardiovascular Exam: Present: regular rate, normal rhythm - GI/Abdominal GI/Abdominal exam: Present: soft. Absent: distended, tenderness, guarding, rebound, rigid, normal bowel sounds - Speculum exam: Present: vaginal discharge ([place] white) Bi-manual exam: Absent: cervical motion tendernes, adnexal tenderness - Extremities Exam Extremities exam: Present: full ROM - Back Exam Back exam: Absent: CVA tenderness (R), CVA tenderness (L) - Neurological Exam Neurological exam: Present: alert, oriented X3 - Psychiatric Psychiatric exam: Present: normal affect, normal mood - Skin Skin exam: Present: warm, dry, intact, normal color. Absent: rash ED Medical Decision Making - Lab Data Result diagrams: 05/11/21 14:23 Lab Results 05/11/21 05/11/21 Range/Units 14:23 14:23 WBC 6.5 (4.5-11.0) K/mm3 RBC 3.88 (3.65-5.03) M/mm3 Hgb 7.7 L (10.1-14.3) gm/dl Hct 24.8 L (30.3-42.9) % MCV 64 L (79-97) fl MCH 20 L (28-32) pg MCHC 31 (30-34) % RDW 19.1 H (13.2-15.2) % Plt Count 354 (140-440) K/mm3 Lymph % (Auto) 30.7 (13.4-35.0) % [place] % (Auto) 6.7 (0.0-7.3) % Eos % (Auto) 2.9 (0.0-4.3) % Baso % (Auto) 1.4 (0.0-1.8) % Lymph # (Auto) 2.0 (1.2-5.4) K/mm3 [place] # (Auto) 0.4 (0.0-0.8) K/mm3 Eos # (Auto) 0.2 (0.0-0.4) K/mm3 Baso # (Auto) 0.1 (0.0-0.1) K/mm3 Seg Neutrophils % 58.3 (40.0-70.0) % Seg Neutrophils # 3.8 (1.8-7.7) K/mm3 HCG, Quant 7809 H (0-4) mIU/mL - Radiology Data Radiology results: report reviewed ULTRASOUND OB TRANSVAGINAL HISTORY: Pain in COMPARISON: None. TECHNIQUE: Routine transabdominal and transvaginal OB ultrasound performed. FINDINGS: Uterus: Mildly enlarged measuring 12.5 x 6.4 x 6.5 cm. Gestational Sac: Well-defined oval shape and intrauterine in location. Yolk Sac: Normal in appearance. Fetus/Embryo: A tiny pole is suggested which is too small to measure. No heart rate could be detected. Average gestational sac diameter of 9.5 mm correlates with a 5 week 5 day . Placenta: Too small for evaluation. Amniotic fluid volume: Subjectively appropriate for gestational age. Ovaries: The right ovary measures 3.1 x 2.3 x 2.6 cm. A 1.7 cm simple appearing cyst is identified. The left ovary measures 3.0 x 2.4 x 2.4 cm. There is a complex hypoechoic area in the left ovary measuring 1.9 x 0.6 cm. This may represent a ruptured cyst Additional findings: There is a moderate amount of free fluid in the cul-de-sac. IMPRESSION A very early intrauterine is identified. A tiny pole is identified but no cardiac activity could be identified. Gestational sac diameter correlates with a 5 week 5 day . Moderate free pelvic fluid in the cul-de-sac. There is a complex area in the left ovary as described of uncertain etiology. This may represent a ruptured left ovarian cyst. Simple 1.7 cm cyst in the right ovary. Close interval follow-up is recommended. - Medical Decision Making 30-year-old -[place] female patient presents with complaints of lower abdominal pain ongoing for 2 weeks. Patient was seen here 05/04/2021 for the same and found to be . She was informed to return to the ED in 2 days for repeat CBC, beta-hCG, and OB ultrasound. Patient states she continues to have lower abdominal cramping pain that is intermittent. She admits to some vaginal discharge that is nonodorous and denies any dysuria/hematuria, urinary frequency, nausea/vomiting/diarrhea, constipation, or fever/chills/sweats. Patient states she has not followed up with an CONTROL CENTER OPERATOR yet. History of bariatric surgery per patient. Patient is G5, ; she also denies any dyspareunia or vaginal bleeding. Discussed the following results with patient of her OB ultrasound: A very early intrauterine is identified. A tiny pole is identified but no cardiac activity could be identified. Gestational sac diameter correlates with a 5 week 5 day . Moderate free pelvic fluid in the cul-de-sac. There is a complex area in the left ovary as described of uncertain etiology. This may represent a ruptured left ovarian cyst. Simple 1.7 cm cyst in the right ovary. Close interval follow-up is recommended. Trichomonas noted on wet prep. Patient admits to pelvic pressure on exam of the cervix, but denies pain. UA still pending. Discussed patient with Vira my CONTROL CENTER OPERATOR manager fine dining-states she consulted with Dr. Jordan-Dr. Jordan to come and evaluate patient here in the ED. patient handed off to BILL Menard Critical Care Time: Yes (CONTROL CENTER OPERATOR consult; evaluation by Dr. Jordan here in ED) Critical care time in (mins) excluding proc time.: 30 ED Disposition Clinical Impression: Lower abdominal pain Disposition: DC-07 LEFT AGAINST MED ADVICE Condition: Stable Instructions: Preventing Iron Deficiency Anemia, Adult, Abdominal Pain (ED) Referrals: [facility] [Provider Group] - 3-5 Days Forms: AMA Form <RUBIN HER - Last Filed: 05/11/21 19:27> ED Review of Systems ROS: Stated complaint: FOLLOWUP/ULTRASOUND/YEAST INFECTION Other details as noted in HPI ED Course Vital Signs 05/11/21 13:42 Temperature 99.4 F Pulse Rate 79 Respiratory 16 Rate Blood Pressure 151/76 O2 Sat by Pulse 100 Oximetry - Reevaluation(s) Reevaluation #1: 05/11/21 19:13 Spoke with patient discussed concerns from CONTROL CENTER OPERATOR regarding possible ectopic since hCG level has not risen much. Also the fact that the ultrasound shows that she has fluid in her cul-de-sac. Patient states that she cannot stay as she has to attend to her daughter and that she dresses no one with her child. I did explain the risks of her leaving without being fully evaluated. Patient states that when she gets her daughter's situated she will come back to the emergency room. - Consultations Consultation #1: 05/11/21 19:[address] Jordan CONTROL CENTER OPERATOR men's furnishings salesperson. To discuss patient's case. Dr. Jordan reviewed labs as well as ultrasound and is concerned for possible ectopic since her quant level has only risen up to 780 from 553 within 2 weeks. She also has fluid in her cul-de-sac. Dr. Jordan states that she would be down to evaluate patient as she is going into the OR for ectopic at this time on another patient. ED Medical Decision Making - Lab Data Result diagrams: 05/11/21 14:23 Critical care attestation.: If time is entered above; I have spent that time in minutes in the direct care of this critically ill patient, excluding procedure time. ED Disposition Is pt being admited?: No Does the pt Need Aspirin: No
[2021-05-11 14:39] LABS: Basophils # (Auto) 0.1 K/mm3 (0.0-0.1); Basophils % (Auto) 1.4 % (0.0-1.8); Eosinophils # (Auto) 0.2 K/mm3 (0.0-0.4); Eosinophils % (Auto) 2.9 % (0.0-4.3); Hematocrit 24.8 % (30.3-42.9); Hemoglobin 7.7 gm/dl (10.1-14.3); Lymphocytes % (Auto) 30.7 % (13.4-35.0); Mean Corpuscular HGB Conc 31 % (30-34); Monocytes # (Auto) 0.4 K/mm3 (0.0-0.8); Monocytes % (Auto) 6.7 % (0.0-7.3); Platelet Count 354 K/mm3 (140-440); Red Blood Count 3.88 M/mm3 (3.65-5.03); Red Cell Distribution Width 19.1 % (13.2-15.2)
[2021-05-11 14:41] LABS: Mean Corpuscular Volume 64 fl (79-97)
--- NOTE | 2021-05-11 16:34 | Ultrasound Report ---
[facility]IME[facility] OBSTETRIC ULTRASOUND ULTRASOUND OB TRANSVAGINAL HISTORY: Pain in COMPARISON: None. TECHNIQUE: Routine transabdominal and transvaginal OB ultrasound performed. FINDINGS: Uterus: Mildly enlarged measuring 12.5 x 6.4 x 6.5 cm. Gestational Sac: Well-defined oval shape and intrauterine in location. Yolk Sac: Normal in appearance. Fetus/Embryo: A tiny pole is suggested which is too small to measure. No heart rate could be detected. Average gestational sac diameter of 9.5 mm correlates with a 5 week 5 day . Placenta: Too small for evaluation. Amniotic fluid volume: Subjectively appropriate for gestational age. Ovaries: The right ovary measures 3.1 x 2.3 x 2.6 cm. A 1.7 cm simple appearing cyst is identified. T he left ovary measures 3.0 x 2.4 x 2.4 cm. There is a complex hypoechoic area in the left ovary measu ring 1.9 x 0.6 cm. This may represent a ruptured cyst Additional findings: There is a moderate amount of free fluid in the cul-de-sac. IMPRESSION A very early intrauterine is identified. A tiny pole is identified but no cardiac act ivity could be identified. Gestational sac diameter correlates with a 5 week 5 day . Moderate free pelvic fluid in the cul-de-sac. There is a complex area in the left ovary as described of uncertain etiology. This may represent a ruptured left ovarian cyst. Simple 1.7 cm cyst in the right ovary. Close interval follow-up is recommended. Signer Name: Gucci Cevallos Jr, MD Signed: 05/11/2021 4:29 PM Workstation Name: [id number]
[2021-05-11 18:14] LABS: Bacteria,Urine 1+ /HPF (Negative); Bilirubin,Urine NEG (Negative); Blood,Urine NEG (Negative); Color,Urine Yellow (Yellow); Mucus,Urine FEW /HPF; Protein,Urine <15 mg/dL mg/dL (Negative)
== END 2021-05-11 19:30 | disposition left against medical advice (07) ==
LOC: ED 12:22
DX: R10.30 Lower abdominal pain, unspecified (principal); D64.9 Anemia, unspecified; I10 Essential (primary) hypertension; Z88.8 Allergy status to other drugs, medicaments and biological substances; Z91.040 Latex allergy status; Z79.899 Other long term (current) drug therapy; Z87.891 Personal history of nicotine dependence; Z98.890 Other specified postprocedural states
CPT/HCPCS: 36415; 76801; 76817; 81001; 84702; 85025; 87210

== ENCOUNTER 2021-05-11 22:47 | Emergency (ER) | payer SELFPAY | END 2021-05-12 02:18 | disposition left against medical advice (07) | LOC: ED 22:47 ==